=== PATIENT | female | born 1975 | race Caucasian/White ===

== ENCOUNTER → 2016-07-26 | Outpatient (CLI) | payer OTHER ==
[2016-07-26 09:53] LABS: BASOPHILS % (AUTO) 1 % (0-2); EOSINOPHILS # (AUTO) 0.1 10^3uL; EOSINOPHILS % (AUTO) 2 % (0-4); LYMPHOCYTES # (AUTO) 1.2 X10^3; MEAN CORPUSCULAR HEMOGLOBIN 27.2 PG (26.0-34.0); MEAN CORPUSCULAR HGB CONC 33.5 g/dL (31.0-37.0); MEAN CORPUSCULAR VOLUME 81 FL (80-100); MEAN PLATELET VOLUME 9.4 FL (6.0-9.5); MONOCYTES # (AUTO) 0.3 X10^3; MONOCYTES % (AUTO) 7 % (3-11); NEUTROPHILS # (AUTO) 2.1 X10^3; NEUTROPHILS % (AUTO) 57 % (51-67); PLATELET COUNT 206 10^3uL (150-450)
[2016-07-26 09:55] LABS: BILIRUBIN,URINE Negative (Negative); CLARITY,URINE Cloudy; COLOR,URINE Yellow; GLUCOSE, URINE (UA) Negative (Negative); LEUKOCYTE ESTERASE ,URINE Trace (Negative); UROBILINOGEN,URINE 0.2 mg/dL (0.2-1.0)
[2016-07-26 10:24] LABS: ALBUMIN 3.8 g/dL (3.4-5.0); ANION GAP 15.9 MEQ/L (3-15); TOTAL PROTEIN 7.1 g/dL (6.4-8.5)
[2016-07-26 10:25] LABS: URINE CENTRIFUGED VOLUME 12 mL
== END ==
LOC: LAB 09:35
PROVIDERS: ATTEND Family Medicine
DX: E88.89 Other specified metabolic disorders (principal); G47.19 Other hypersomnia; G57.11 Meralgia paresthetica, right lower limb; R51 Headache; R82.99 Other abnormal findings in urine
CPT/HCPCS: 36415; 80053; 80061; 81003; 81015; 84443; 85025; 87077; 87088; 87186

== ENCOUNTER → 2016-08-08 | Outpatient (CLI) | payer OTHER ==
--- NOTE | 2016-08-08 10:19 | Diagnostic Imaging Report ---
PROCEDURE: US Abdomen, limited. TECHNIQUE: Multiple realtime grayscale images were obtained over the abdomen in various projections. INDICATION: Elevated liver function studies. FINDINGS: The gallbladder is surgically absent. No perihepatic fluid collection or ascites. There is no pathological dilatation of the biliary ducts. The liver parenchyma appears unremarkable. Much of the pancreas is obscured by gas. The portal vein is patent and shows normal hepatopetal directional flow. IMPRESSION: The gallbladder is absent. No fluid collection, ascites, or biliary dilatation. Dictated by: Dictated on workstation # [id number]
[2016-08-08 14:00] LABS: IRON 71 ug/dL (50-170); UNBOUND IRON CONTENT 279 ug/dl (126-382)
[2016-08-08 14:18] LABS: HEPATITIS A ANTIBODY IGM Negative; HEPATITIS B CORE ABY IGM Negative; HEPATITIS B SURFACE ANTIGEN C Negative
== END ==
LOC: RAD 07:39
PROVIDERS: ATTEND Family Medicine
DX: R74.8 Abnormal levels of other serum enzymes (principal); Z90.49 Acquired absence of other specified parts of digestive tract
CPT/HCPCS: 76705; 80074; 82728; 83540; 83550